=== PATIENT | female | born 1995 | race Two or more races ===

== ENCOUNTER 2024-01-30 08:51 | Outpatient (AMB) | payer OTHER, SELFPAY ==
--- NOTE | 2024-01-30 08:58 | MHC.PC.OV ---
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 Intake Note: new patient to establish care Allergies No Known Allergies Allergy (Verified 01/30/24 09:11) Medication List - Last Reconciled 01/30/24 by Rosa Elena Barraza, [facility] escitalopram oxalate 5 mg PO DAILY Tobacco use date assessed: 01/30/24 Dental Screening Dental Screen Date: 01/30/24 Did you have a dental visit in the last 12 months?: Yes Did you have a dental problem in the last 6 months where you did not have access to dental care?: No Was dental information given to patient?: Patient has dentist HPI HPI Comments History of Present Illness Details Brenda 28 y/o F MDD, current tobacco user, obesity, MDD, ANDREEA Social: 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 No old records available to me today. Has not had a PCP in a while Has been gaining a lot of wt. 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 She is also working out. Needs help to loose wt. Reports labs 1 mo ago at school, negative per reports for thyroid or diabetes. Having irregular periods of late; every 3-4 months it will be late. This month due yesterday but has not gotten it yet. She is not sexually active. Dad 3 years ago and was having irregular periods at that time which lasted for about 2 years. Thinks had some sort of PCOS work up done at school, this was as while ago. Not active w RESEARCH PROFESSOR or Endo. Denies hirsutism, acanthosis nigrans. MDD - on escitalopram for the last 7 months. Feels like sx are controlled for the most part. Discussed relationship w/ food and body image. Does weigh self daily. Was called fat when living in [place] for a decade. Hates body. Denies any anorexia, binging or purging. Denies SI/HI Hx of restricting during Judo competitions but not outside of that. Current tobacco use - just started recently d/t stress. Exam: Awake alert NAD thyroid nonpalpable RRR LS CTAB Mood and affect approriate Plan Flu shot today Check labs today Cont meds and care w/ psych Smoking cessation RTO in 3-4 weeks to fu on results and discuss treatments, sooner PRN This note is constructed using voice recognition software. While every effort has been made to ensure accuracy in multifocal button generator, still errors may have been included Sometimes, these errors may affect the content or meaning of the given sentence . Total time spent caring for the patient today was 46 minutes. This includes time spent before the visit reviewing the chart, time spent during the visit, and time spent after the visit on documentation [facility] Medical History (Updated 01/30/24 @ 09:44 by Rosa Elena Barraza [facility]) Depression Surgical History (Updated 01/30/24 @ 09:03 by Ashley Reyes MA) No pertinent past surgical history Family History (Updated 01/30/24 @ 09:04 by Ashley Reyes MA) Mother Hypertension Father Hypertension Maternal Grandmother Diabetes Social History (Updated 01/30/24 @ 09:05 by Ashley Reyes MA) Household Members: Other Housing: Apartment Are you a primary resident care aide to a significant other at home: No Do you presently have visiting nurse or other home services: No Alcohol intake: current Alcohol intake frequency: a few times a month Patient Tobacco Use Status: Current everyday Tobacco user Tobacco use type: Cigarette Cigarette Packs Per Day: 1 Cigarettes Per Day: 1 Years Smoked: 2 weeks e-Cigarette/Vaping Use: Never Used service: No Current occupational status: student Cognitive needs: No Hearing needs: No Vision needs: No Questionnaire PHQ-9 Over the last 2 weeks, how often have you been bothered by any of the following problems? 1. Little interest or pleasure in doing things: not at all 2. Feeling down, depressed, or hopeless: not at all 3. Trouble falling or staying asleep, or sleeping too much: not at all 4. Feeling tired or having little energy: not at all 5. Poor appetite or overeating: several days 6. Feeling bad about yourself - or that you are a failure or have let yourself or your family down: not at all 7. Trouble concentrating on things, such as reading the newspaper or watching television: not at all 8. Moving or speaking so slowly that other people could have noticed. Or the opposite - being so fidgety or restless that you have been moving around a lot more than usual: not at all 9. Thoughts that you would be better off or of hurting yourself in some way: not at all Total score: 1 Depression Screening Interpretation: Negative Depression Screening Done: Yes 46150 - PHQ-9 Billing: Yes Source: Developed by Drs. Сергей Agee, Amira Acuna, Jonah Mitchell and colleagues, with an educational lee from [employer]. Thrive Questionnaire Date Thrive assessed: 01/30/24 I am a: Patient What is your living situation today?: I have a steady place to live Within the past 12 months, did the food you bought not last and you didn't have the money to get more?: Never true Within the past 12 months, did you worry whether your food would run out before you got money to buy more?: Never true Do you have trouble paying for medicines?: No Do you have trouble getting transportation to medical appointments?: No Do you have trouble paying your heating and electricity bill?: No Do you have trouble taking care of your child, family member or friend?: No Do you have trouble with day-to-day activities such as bathing, preparing meals, shopping, managing finances, etc.?: No Are you currently unemployed and looking for a job?: No Are you interested in more education?: No Please select the resources that you would like help with: None Currently or been in a relationship where the following occur: No concerns reported THRIVE Score: 0 AUDIT C Alcohol Use Questionnaire (AUDIT-C) 1. How often do you have a drink containing alcohol?: Monthly or less 3. How often do you have six or more drinks on one occasion?: Never Total Score: 1 Score Reviewed/Action Taken: Yes ANDREEA-7 AMB Questionnaire ANDREEA-7 Date ANDREEA - 7 assessed: 01/30/24 Feeling nervous, anxious, or on edge: 1 = Several days Not being able to stop or control worryin = Several days Worrying too much about different things: 1 = Several days Trouble relaxin = Several days Being so restless that it is hard to sit still: 0 = Not at all Feeling afraid as if something awful might happen: 0 = Not at all Source: Developed by Drs. Сергей Agee, Amira Acuna, Jonah Mitchell and colleagues, with an educational lee from [employer]. ANDREEA-7 Assessment Billing ANDREEA-7 Assessment Tool: ANDREEA-7 Assessment 98784 Physical exam (Primary Care) Vital Signs: Last Vital Signs Pulse 59 01/30/24 09:05 Resp 14 01/30/24 09:05 BP 118/70 01/30/24 09:05 Pulse Ox 99 01/30/24 09:05 Oxygen Delivery Method Room Air 01/30/24 09:05 BMI result Body Mass Index 39.0 BMI Assessment/Plan discussion: High BMI High, discussed plan: lifestyle, dietary and physical activity Tobacco/Smoking Status: Tobacco use Status Tobacco use date assessed 01/30/24 01/30/24 09:07 Patient Tobacco Use Status Current everyday Tobacco 01/30/24 09:07 Tobacco use type Cigarette 01/30/24 09:07 e-Cigarette/Vaping Use Never Used 01/30/24 09:07 Are you ready to quit: No Tobacco cessation counseling provided: Yes Items discussed: Other Relapse Prevention: discussed the importance of a supportive environment, discussed extending NRT, discussed negative mood or depression after quitting, weight gain after smoking is common and discussed dietary, exercise and/or lifestyle changes Number of minutes spent counselin CPT code: 65694 - 4-10 Minutes PHQ-9: PHQ-9 Score PHQ-9: Total score 1 01/30/24 10:02 Depression Screening Interpretation: Negative Thrive Assessment: Date of Thrive Assessment Date Thrive assessed 01/30/24 01/30/24 09:00 Currently or been in a relationship where the following occur: No concerns reported Office Procedures Flu Questionnaire Does the patient have a severe egg allergy?: No Does the patient have severe life threatening allergies?: No Does the patient have a fever or illness today?: No Has the patient ever had Guillain-[place] Syndrome?: No Has the patient ever had any past reaction to a flu shot?: No Immunizations Fluarix Triv 4122-0445 (PF) 45 mcg (15 mcg x 3)/0.5 mL IM syringe Performing Provider: ALEXEY Norris Performing Location: [facility] Family Medicine Administered by: Nicole Flannery RN on 01/30/24 10:02 Dose Route Admin Location Dispensed Lot Number Expiration Date [facility] Barrel Lapper 0.5 mL IM Right Deltoid 0.5 mL [id number] 10/07/24 [id number] [employer] VIS Given Date VIS Provided VIS Publication Date 01/30/24 Single Vaccine 20 Eligibility Eligibility Date Funding Source Not [facility] Eligible 01/30/24 Private Coding Level of Care Code New Pt Level 4 (32147) Complex EM visit Add On G2211 Diagnoses 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 Oligomenorrhea type: secondary ANDREEA (generalized anxiety disorder) F41.1 Mild episode of recurrent major depressive disorder F33.0 Major depression episode severity: mild BMI 39.0-39.9,adult Z68.39 Obesity, Class II, BMI 35-39.9 E66.812 Current tobacco use Z72.0 Additional Codes ANDREEA-7 Assessment Billing - ANDREEA-7 Assessment Tool: ANDREEA-7 Assessment 99330 ([id number]) Vital Signs *Quality* - CPT code: 97181 - 4-10 Minutes ([id number]) Assessment & Plan Assessment & Plan (1) Oligomenorrhea: Code(s): N91.5 - Oligomenorrhea, unspecified Category: Medical Qualifiers: Oligomenorrhea type: secondary Qualified Code(s): N91.4 - Secondary oligomenorrhea Plan: . (2) ANDREEA (generalized anxiety disorder): Code(s): F41.1 - Generalized anxiety disorder Category: Medical Plan: . (3) MDD (major depressive disorder), recurrent episode: Code(s): F33.9 - Major depressive disorder, recurrent, unspecified Category: Medical Qualifiers: Major depression episode severity: mild Qualified Code(s): F33.0 - Major depressive disorder, recurrent, mild Plan: . (4) BMI 39.0-39.9,adult: Code(s): Z68.39 - Body mass index [BMI] 39.0-39.9, adult Category: Medical Plan: . (5) Obesity, Class II, BMI 35-39.9: Code(s): E66.812 - Obesity, class 2 Category: Medical Plan: . (6) Current tobacco use: Code(s): Z72.0 - Tobacco use Category: Social Hx Plan: Smoking Cessation How to Quit There are a lot of ways to quit smoking and many resources to help you. Family members, friends, and co-workers may be supportive or encouraging, but to be successful the desire and commitment to quit must be your own. Most people who have been able to successfully quit smoking made at least one unsuccessful attempt in the past. Try not to view past attempts to quit as failures, but rather as learning experiences. Stopping smoking or using smokeless tobacco is difficult, but anyone can do it. Know the symptoms to expect when you stop. Common symptoms include: ? An intense craving for nicotine ? Anxiety, tension, restlessness, frustration, or impatience ? Difficulty concentrating ? Drowsiness or trouble sleeping, as well as bad dreams and nightmares ? Drowsiness and trouble sleeping ? Headaches ? Increased appetite and weight gain ? Irritability or depression How severe your symptoms are depends on how long you smoked and how many cigarettes you smoked each day. Feel ready to quit? ? First and foremost, set a quit date and quit completely on that day. Before your quit date, you may begin reducing your cigarette use. But remember, there is no safe level of cigarette smoking. ? List the reasons why you want to quit. Include both short- and long-term benefits. ? Identify the times you are most likely to smoke. For example, do you tend to smoke when feeling stressed or down? When out at night with friends? While drinking coffee or alcohol? When bored? While driving? Right after a meal or sex? During a work break? While watching TV or playing cards? When you are with other smokers? ? Let all of your friends, family, and co-workers know of your plan to stop smoking and your quit date. Just being aware that they know what you're going through can be helpful, especially when you are grumpy. ? Get rid of all your cigarettes just before the quit date, and clean out anything that smells like smoke, such as clothes and furniture. Make a plan about what you will do instead of smoking at those times when you are most likely to smoke. ? Be as specific as possible. For example, drink tea instead of coffee -- tea may not trigger the desire for a cigarette. Or, take a walk when you feel stressed. ? Remove ashtrays and cigarettes from the car. Place pretzels or hard candies there instead. Pretend-smoke with a straw. ? Find activities that focus your hands and mind but are not taxing or fattening. Computer games, solitaire, knitting, sewing, and crossword puzzles may help. ? If you normally smoke after eating, find other ways to end a meal. Play a tape or CD, eat a piece of fruit, get up and make a phone call, or take a walk (a good distraction that also govea calories). Make other changes in your lifestyle. ? Change your daily schedule and habits. Eat at different times or eat several small meals instead of three large ones. Sit in a different chair or even a different room. ? Satisfy your oral habits by eating celery or other low-calorie snack, chewing sugarless gum, or sucking on a cinnamon stick. ? Go to public places and restaurants where smoking is prohibited or restricted. ? Eat regular meals and don't eat too much candy or sweet things. ? Get more exercise. Take walks or ride a bike. Exercise helps relieve the urge to smoke. Set short-term quitting goals and reward yourself when you meet them. ? Every day, put the money you normally spend on cigarettes in a jar. Then buy something pleasurable after a period of time. ? Try not to think about all the days ahead you will need to avoid smoking. Take it one day at a time. ? Even one puff or one cigarette will make your desire for more cigarettes even stronger. However, it is normal to make mistakes. So even if you have one cigarette, you don't need to take the next one. Other tips to help you quit smoking and stick to it: ? Enroll in a smoking cessation program (hospitals, health departments, community centers, and work sites often offer programs). Learn about self-hypnosis or other techniques. ? Ask your health care provider about prescription medications that are safe and appropriate for you. ? Find out about nicotine patches, gum, and sprays. The [place] [employer]'s web site -- www.cancer.org -- is an excellent resource for smokers who are trying to quit, and the [employer] [place] [employer] can help some smokers kick the habit. Above all, don't get discouraged if you aren't able to quit smoking the first time. Nicotine addiction is a hard habit to break. Try something different next time. Develop new strategies, and try again. Many people take several attempts to finally kick the habit. Plan . Orders: Orders DHEA Sulfate Today N91.5 - Oligomenorrhea, unspecified Prolactin Today N91.5 - Oligomenorrhea, unspecified 17 Hydroxyprogesterone Today N91.5 - Oligomenorrhea, unspecified Comprehensive Met. Panel Today N91.5 - Oligomenorrhea, unspecified Hemoglobin A1c Today N91.5 - Oligomenorrhea, unspecified IRON PROFILE Today N91.5 - Oligomenorrhea, unspecified Microalbumin, Random (w Creat) Today N91.5 - Oligomenorrhea, unspecified Vitamin D 1,25 dihydroxy Today N91.5 - Oligomenorrhea, unspecified Influenza 1799-8150 Immunization Today Z23 - Encounter for immunization Testosterone, Free/Total Today N91.5 - Oligomenorrhea, unspecified Complete Blood Count no Diff Today N91.5 - Oligomenorrhea, unspecified Lipid Panel Today N91.5 - Oligomenorrhea, unspecified TSH reflex Free T4 Today N91.5 - Oligomenorrhea, unspecified Vitamin B12 and Folate Today N91.5 - Oligomenorrhea, unspecified Patient Instructions: Walk-In Care (Urgent Care): We Make it Easy Walk-in for urgent medical issues such as: ? Seasonal Allergies ? Insect Bites ? Cough ? Diarrhea ? Acute Asthma Attacks ? Back, Knee or Joint Pain ? Ear Infection ? Fever without a Rash ? Headaches ? Nausea ? [facility] Eye, Rash or Skin Irritation ? Sore Throat ? Sports Physicals ? Vomiting Most insurances are accepted. Patients do not need to be part of the [facility] to seek care at the walk-in clinic. Locations [facility] , [place] [address] ? [phone] [facility] Walk-In Care in [place] provides services to ages 18 and over. Open Monday-Monday: 8 a.m. to 5 p.m. and Monday: 9 a.m. to 3 p.m.* *Hours may vary due to staffing availability. To confirm Walk-In Care hours in [place], please call [phone]. [address] [facility], [place] [address] ? [phone] [facility] Walk-In Care in [place] provides services to ages 12 and over. Open Monday-Monday: 8 a.m. to 5 p.m. Hours may vary due to staffing availability. To confirm Walk-In Care hours in [place], please call [phone]. LABORATORY SERVICES: [facility] Lab ? Primary Location [address] [place] [address] Monday through Monday 6:00 AM ? 5:00 PM Monday 7:00 AM ? 11:00 AM* [phone] The [facility] Lab is centrally located near the front entrance of the [facility] for easy outpatient access. Convenient parking is provided for outpatients. *Hours may vary due to staffing availability. To confirm Laboratory hours for any location, please call [phone]. Offsite Location For your convenience, we offer offsite laboratory draw stations at the following locations: [address] [place] [address] ? [address], [address] Monday through Monday 7:30 AM ? 1:00 PM* [phone] *Hours may vary due to staffing availability. To confirm Laboratory hours for any location, please call [phone]. [place] ? [address] Monday through Monday 6:00 AM ? 3:30 PM* Monday 6:30 AM ? 3 PM* [phone] *Hours may vary due to staffing availability. To confirm Laboratory hours for any location, please call [phone] [place] [address] Monday through Monday 7:30 AM ? 4:00 PM* [phone] *Hours may vary due to staffing availability. To confirm Laboratory hours for any location, please call [phone] [place] [address] Monday through 9:00 AM ? 4:00 PM* *Hours may vary due to staffing availability. To confirm Laboratory hours for any location, please call [phone]. Appointments are not necessary. Walk-ins are welcome. Like all the departments throughout the [facility], our Lab undergoes frequent reviews to ensure the quality and accuracy of test results, and our staff takes special pride in its status as a nationally accredited facility. Patient Portal: ONE PATIENT. ONE RECORD. BETTER CARE. [facility] has a fully integrated, cutting-edge mobile electronic health information system that has revolutionized the way we care for our patients and manage our organization. This system improves communication and coordination enabling us to provide safe, higher-quality care, and an overall positive experience for staff and patients. Our first priority, as always, is to deliver the highest quality care possible. The system is running in the background supporting that priority. This portal is for all [facility] services and practices. If you are experiencing any technical difficulties with enrolling or logging into the Patient Portal please complete the [facility] Patient Portal Technical Support Form. [facility] now offers a new secure on-line interactive tool for patients to review their health information ? ?Patient Portal. This interactive web portal will enable patients and their families to take an active role in their care by providing easy, secure access to their health information via the internet. The Patient Portal provides patients with instant access to their health information, including laboratory results, medications, allergies, demographic information, visit history, and more. In addition to managing their own care, parents and health care proxies with authorized consent will appreciate the ability to access the records of those individuals for whom they provide care. Please note: if you wish to gain access (Proxy) to another patient?s portal, you will be required to come to the Medical Records Department in person at [facility]. Both the patient giving proxy access and the proxy will need to provide photo identification and complete the appropriate authorization. The Patient Portal also allows track their appointments online. The [facility] Patient Portal also saves patients time by allowing them to submit updates to their demographic and contact information prior to their visits. Portal email notifications will also alert patients to any new activity on their portal, such as test results and new appointments. In order to initially enroll in the [facility] Patient Portal, you will need to enter some required information including the following: your [facility] Medical Record number your personal home email address name date of Please note: In order to enroll in the [facility] Patient Portal, we need to have your email address on file in your electronic medical record. ?The email address needs to be specific for one person (yourself) in order for your Portal enrollment to be successful. ?You can update your email address in person with our Registration staff when you are registering for a hospital visit. ?Otherwise, you will need to come to the Health Information Management (Medical Records) Department at [facility]. ?We are open from Monday ? Monday from 7:30 a.m. ? 4:30 p.m. ?You will be required to present a photo id. Once you have successfully enrolled in the Patient Portal, you will receive a one-time user id and password for the Portal, sent to your email address. ?This will allow you to log into the Patient Portal within 99 hrs and reset your own logon id and password, and define personal security questions. ?Once your permanent login and password have been set, you can log into the [facility] Patient Portal at any time via the blue button above or from the Portal Logon button on any page of the [facility] website. [facility] and [facility] encourage all of our patients to enroll in Patient Portal as it presents a valuable opportunity for patients and their families to actively participate in their care and stay healthy Welcome to [facility]. ?We look forward to working with you.
[2024-01-30 09:05] VITALS: BP 118/70; PULSE 59; RESP 14; O2SAT 99; BMI 39.0
== END 2024-01-30 09:35 | disposition home or self-care (01) ==
PROVIDERS: PCP Nurse Practitioner Family; Visit Provider Nurse Practitioner Family
DX: N91.4 Secondary oligomenorrhea (principal); F41.1 Generalized anxiety disorder; F33.0 Major depressive disorder, recurrent, mild; Z68.39 Body mass index [BMI] 39.0-39.9, adult; E66.812 Obesity, class 2; Z72.0 Tobacco use; Z23 Encounter for immunization

== ENCOUNTER → 2024-01-30 08:51 | Outpatient (BNVA) | payer OTHER, SELFPAY | PROVIDERS: Visit Provider Nurse Practitioner Family ==

== ENCOUNTER 2024-01-30 09:43 | Outpatient (REF) | payer OTHER, SELFPAY ==
[2024-01-30 11:36] LABS: Hematocrit 36.8 % (37.0-47.0); Hemoglobin 11.8 g/dl (12.0-16.0); Mean Corpuscular HGB Conc 32.1 g/dl (31.0-35.0); Mean Corpuscular Hemoglobin 24.3 pg (27.0-33.0); Mean Corpuscular Volume 75.7 fL (80.0-98.0); Mean Platelet Volume 10.3 fL (9.4-12.3); Platelet Count 274 X10*3/uL (160-400); Red Blood Count 4.86 X10*6/uL (4.20-5.50); Red Cell Distribution Width 13.3 % (11.0-16.0); White Blood Count 5.4 X10*3/uL (4.8-10.8)
[2024-01-30 12:02] LABS: Alanine Aminotransferase 48 U/L (0-31); Albumin Level 4.4 g/dL (3.5-5.0); Alkaline Phosphatase 54 U/L (39-117); Anion Gap 10 (12-20); Aspartate Amino Transferase 33 U/L (5-31); Bilirubin Total 0.2 mg/dL (0.0-1.0); Blood Urea Nitrogen 13 mg/dL (9-16); Calcium 9.5 mg/dL (8.4-10.2); Carbon Dioxide 24 mmol/L (22-29); Chloride 110 mmol/L (96-108); Cholesterol 163 mg/dL (<200); Estimated Glomerular Filt Rate > 60; Glucose Random 122 mg/dL (60-115); HDL Cholesterol 43 mg/dL (>40); Iron 34 mcg/dL (30-160); LDL Cholesterol Calculated 105 mg/dL (<100); Percent Iron Saturation 9 % (15-50); Potassium 4.3 mmol/L (3.3-5.1); Sodium 140 mmol/L (135-145); Total Iron Binding Capacity 385 mcg/dL (228-428); Total Protein 7.5 g/dL (6.5-8.0); Triglycerides 79 mg/dL (<150); Unsaturated Iron Binding 351 ug/dL
[2024-01-30 12:03] LABS: Estimated Average Glucose 140 mg/dL; Hemoglobin A1C 143.5784 umol/L; Hemoglobin A1c % 6.5 % (<6.0); Total Hemoglobin (HGBA1C) 3045.8968 umol/L
[2024-01-30 12:08] LABS: TSH reflex Free T4 1.56 uIU/mL (0.32-4.0)
[2024-01-30 12:19] LABS: Folate 11.1 ng/mL (> or = 4.0); Vitamin B12 335 pg/mL (200-900)
[2024-01-30 15:07] LABS: Creatinine Urine 195.35 mg/dL; Microalbum/Creatinine Ratio Ur 9.2 ug/mg cr (<30)
[2024-02-01 10:14] LABS: DHEA Sulfate 233 mcg/dL (14-349); Prolactin 5.2 ng/mL
[2024-02-06 00:09] LABS: VITAMIN D (1,25 OH) D3 47 pg/mL; Vit D (1,25-Dihydroxy) Total 47 pg/mL (18-72); Vitamin D (1,25 OH) D2 <8 pg/mL
[2024-02-09 21:59] LABS: Testosterone, Free 3.7 pg/mL (0.1-6.4); Testosterone, Total 21 ng/dL (2-45)
== END 2024-01-30 09:44 | disposition home or self-care (01) ==
LOC: HO.WFDLDS 09:43
PROVIDERS: Visit Provider Nurse Practitioner Family
DX: Z23 Encounter for immunization (principal); F41.1 Generalized anxiety disorder; F33.0 Major depressive disorder, recurrent, mild; E66.812 Obesity, class 2; Z68.39 Body mass index [BMI] 39.0-39.9, adult; N91.5 Oligomenorrhea, unspecified; Z71.3 Dietary counseling and surveillance; Z72.0 Tobacco use
CPT/HCPCS: 36415; 80053; 80061; 82043; 82570; 82607; 82627; 82652; 82746; 83036; 83498; 83540; 84146; 84402; 84403; 84443; 85027; 90471; 90656; 96127; 99202

== ENCOUNTER 2024-02-16 08:28 | Outpatient (AMB) | payer OTHER, SELFPAY ==
--- NOTE | 2024-02-16 08:32 | MHC.PC.OV ---
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 Required: No Allergies No Known Allergies Allergy (Verified 02/16/24 08:48) Medication List - Last Reconciled 02/16/24 by LAZARA Norris- escitalopram oxalate 5 mg PO DAILY Tobacco use date assessed: 01/30/24 Dental Screening Dental Screen Date: 01/30/24 HPI HPI Comments History of Present Illness Details Brenda 28 y/o F MDD, current tobacco user, obesity, MDD, ANDREEA, Iron def anemia, DM2, Vegetarian Diet, Fatty liver Social: 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 Labs from 01/30/2024 show anemia hemoglobin 11.8, hematocrit 36.8, MCV 75.7, MCH 24.3, low% iron saturation at 9 otherwise normal iron profile, normal electrolytes, normal renal function, random glucose 122, hemoglobin A1c 6.5%, elevated LFTs AST 33, ALT 48, normal cholesterol profile, normal B12, folate and TSH, normal urine microalbumin creatinine ratio normal prolactin, DHEAs... all normal In regards to the anemia she denies any overt blood loss. She is a vegetarian. She does not take any supplements. Discuss the PCOS diagnosis. Made aware that the testing should be done around certain times of her period. As she has irregular menses this would be difficult. Discussed checking an ultrasound. Patient states that she has no plans to conceive children. She is open to starting a control. She is currently smoking tobacco so this is 1 contraindication to OCPs. This is a new habit. Hope to support and encourage cessation Plan Start metformin ER 500 mg p.o. q.a.m.. Advised to take with a meal. If unable to eat, advised to skip. He was being given to help diabetes, fatty liver as well as to aid in weight loss. We will titrate to effect. Goal a1c < 6 Refer to ophthalmology for diabetic eye exam, referral to adult educator for nutrition. Start a multivitamin with iron. Advised to take with food. Educated on the GI side effects that can occur, advised to take with food. Okay to reduce down to taking 3 times a week if unable to tolerate. Will review adding OCP at the next visit, once again, tobacco cessation is required. Can also consider spironolactone. Return to office in 2 months to follow up on diabetes, iron-deficiency anemia, fatty liver, sooner as needed This note is constructed using voice recognition software. While every effort has been made to ensure accuracy in vfx artist, still errors may have been included Sometimes, these errors may affect the content or meaning of the given sentence . Total time spent caring for the patient today was 40 minutes. This includes time spent before the visit reviewing the chart, time spent during the visit, and time spent after the visit on documentation [facility] Medical History (Updated 02/16/24 @ 15:29 by Rosa Elena Barraza, [facility]) Depression Surgical History (Updated 01/30/24 @ 09:03 by Ashley Reyes MA) No pertinent past surgical history Family History (Updated 01/30/24 @ 09:04 by Ashley Reyes MA) Mother Hypertension Father Hypertension Maternal Grandmother Diabetes Social History (Updated 01/30/24 @ 09:05 by Ashley Reyes MA) Household Members: Other Both parents involved: No Caregiver staying overnight: No Housing: Apartment Are you a primary critical care nurse practitioner to a significant other at home: No Do you presently have visiting nurse or other home services: No 75 years or older and lives alone: No Alcohol intake: current Alcohol intake frequency: a few times a month Patient Tobacco Use Status: Current everyday Tobacco user Tobacco use type: Cigarette Cigarette Packs Per Day: 1 Cigarettes Per Day: 1 Years Smoked: 2 weeks e-Cigarette/Vaping Use: Never Used service: No Current occupational status: student Cognitive needs: No Hearing needs: No Vision needs: No Questionnaire PHQ-9 Over the last 2 weeks, how often have you been bothered by any of the following problems? 42292 - PHQ-9 Billing: Patient declined-do not bill Source: Developed by Drs. Сергей Agee, Amira Acuna, Jonah Mitchell and colleagues, with an educational lee from [employer]. Thrive Questionnaire Date Thrive assessed: 02/16/24 I am a: Patient What is your living situation today?: I have a steady place to live Within the past 12 months, did the food you bought not last and you didn't have the money to get more?: Never true Within the past 12 months, did you worry whether your food would run out before you got money to buy more?: Never true Do you have trouble paying for medicines?: No Do you have trouble getting transportation to medical appointments?: No Do you have trouble paying your heating and electricity bill?: No Do you have trouble taking care of your child, family member or friend?: No Do you have trouble with day-to-day activities such as bathing, preparing meals, shopping, managing finances, etc.?: No Are you currently unemployed and looking for a job?: No Are you interested in more education?: No Please select the resources that you would like help with: None Currently or been in a relationship where the following occur: No concerns reported THRIVE Score: 0 ANDREEA-7 AMB Questionnaire ANDREEA-7 Date ANDREEA - 7 assessed: 01/30/24 Becoming easily annoyed or irritable: 1 = Several days Source: Developed by Drs. Сергей Agee, Jonah Chopra and colleagues, with an educational lee from [employer]. Physical exam (Primary Care) Vital Signs: Last Vital Signs Pulse 76 02/16/24 08:36 Resp 13 02/16/24 08:36 BP 118/68 02/16/24 08:36 Pulse Ox 98 02/16/24 08:36 Oxygen Delivery Method Room Air 02/16/24 08:36 BMI result Body Mass Index 38.9 Tobacco/Smoking Status: Tobacco use Status Tobacco use date assessed 01/30/24 02/16/24 08:35 Patient Tobacco Use Status Current everyday Tobacco 02/16/24 08:35 Tobacco use type Cigarette 02/16/24 08:35 e-Cigarette/Vaping Use Never Used 02/16/24 08:35 Are you ready to quit: No Tobacco cessation counseling provided: Yes Items discussed: Nicotine replacement, QuitWorks and Other Relapse Prevention: discussed the importance of a supportive environment, discussed extending NRT, discussed negative mood or depression after quitting, weight gain after smoking is common and discussed dietary, exercise and/or lifestyle changes CPT code: 84649 - 4-10 Minutes Thrive Assessment: Date of Thrive Assessment Date Thrive assessed 02/16/24 02/16/24 08:35 Currently or been in a relationship where the following occur: No concerns reported Office Procedures Office Procedure Misc Details: G0449 15 MINUTE OBESITY EDUCATION Office Procedure Billing Code: AMB Procedure Billing Code (G0449 15 MINUTE OBESITY EDUCATION) Coding Level of Care Code Est Pt Level 5 (98433) Complex EM visit Add On G2211 Diagnoses Type 2 diabetes mellitus without complication, without long-term current use of insulin E11.9 Diabetes mellitus complication status: without complication Diabetes mellitus watcher automat long goods insulin use: without watcher automat long goods use Fatty liver disease, nonalcoholic K76.0 Iron deficiency anemia secondary to inadequate dietary iron intake D50.8 Iron deficiency anemia type: inadequate dietary iron intake BMI 39.0-39.9,adult Z68.39 Obesity, Class II, BMI 35-39.9 E66.812 Current tobacco use Z72.0 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 Oligomenorrhea type: secondary Vegetarian diet Z78.9 CPT Codes Office Procedure - Office Procedure Billing Code: AMB Procedure Billing Code ([id number]) Additional Codes Vital Signs *Quality* - CPT code: 24696 - 4-10 Minutes ([id number]) Assessment & Plan Assessment & Plan (1) DM2 (diabetes mellitus, type 2): Code(s): E11.9 - Type 2 diabetes mellitus without complications Category: Medical Qualifiers: Diabetes mellitus complication status: without complication Diabetes mellitus fci insulin use: without fci use Qualified Code(s): E11.9 - Type 2 diabetes mellitus without complications Plan: . (2) Fatty liver disease, nonalcoholic: Code(s): K76.0 - Fatty (change of) liver, not elsewhere classified Category: Medical Plan: . (3) Iron deficiency anemia: Code(s): D50.9 - Iron deficiency anemia, unspecified Category: Medical Qualifiers: Iron deficiency anemia type: inadequate dietary iron intake Qualified Code(s): D50.8 - Other iron deficiency anemias (4) BMI 39.0-39.9,adult: Code(s): Z68.39 - Body mass index [BMI] 39.0-39.9, adult Category: Medical Plan: . (5) Obesity, Class II, BMI 35-39.9: Code(s): E66.812 - Obesity, class 2 Category: Medical Plan: . (6) Current tobacco use: Code(s): Z72.0 - Tobacco use Category: Social Hx Plan: Smoking Cessation How to Quit There are a lot of ways to quit smoking and many resources to help you. Family members, friends, and co-workers may be supportive or encouraging, but to be successful the desire and commitment to quit must be your own. Most people who have been able to successfully quit smoking made at least one unsuccessful attempt in the past. Try not to view past attempts to quit as failures, but rather as learning experiences. Stopping smoking or using smokeless tobacco is difficult, but anyone can do it. Know the symptoms to expect when you stop. Common symptoms include: ? An intense craving for nicotine ? Anxiety, tension, restlessness, frustration, or impatience ? Difficulty concentrating ? Drowsiness or trouble sleeping, as well as bad dreams and nightmares ? Drowsiness and trouble sleeping ? Headaches ? Increased appetite and weight gain ? Irritability or depression How severe your symptoms are depends on how long you smoked and how many cigarettes you smoked each day. Feel ready to quit? ? First and foremost, set a quit date and quit completely on that day. Before your quit date, you may begin reducing your cigarette use. But remember, there is no safe level of cigarette smoking. ? List the reasons why you want to quit. Include both short- and long-term benefits. ? Identify the times you are most likely to smoke. For example, do you tend to smoke when feeling stressed or down? When out at night with friends? While drinking coffee or alcohol? When bored? While driving? Right after a meal or sex? During a work break? While watching TV or playing cards? When you are with other smokers? ? Let all of your friends, family, and co-workers know of your plan to stop smoking and your quit date. Just being aware that they know what you're going through can be helpful, especially when you are grumpy. ? Get rid of all your cigarettes just before the quit date, and clean out anything that smells like smoke, such as clothes and furniture. Make a plan about what you will do instead of smoking at those times when you are most likely to smoke. ? Be as specific as possible. For example, drink tea instead of coffee -- tea may not trigger the desire for a cigarette. Or, take a walk when you feel stressed. ? Remove ashtrays and cigarettes from the car. Place pretzels or hard candies there instead. Pretend-smoke with a straw. ? Find activities that focus your hands and mind but are not taxing or fattening. Computer games, solitaire, knitting, sewing, and crossword puzzles may help. ? If you normally smoke after eating, find other ways to end a meal. Play a tape or CD, eat a piece of fruit, get up and make a phone call, or take a walk (a good distraction that also govea calories). Make other changes in your lifestyle. ? Change your daily schedule and habits. Eat at different times or eat several small meals instead of three large ones. Sit in a different chair or even a different room. ? Satisfy your oral habits by eating celery or other low-calorie snack, chewing sugarless gum, or sucking on a cinnamon stick. ? Go to public places and restaurants where smoking is prohibited or restricted. ? Eat regular meals and don't eat too much candy or sweet things. ? Get more exercise. Take walks or ride a bike. Exercise helps relieve the urge to smoke. Set short-term quitting goals and reward yourself when you meet them. ? Every day, put the money you normally spend on cigarettes in a jar. Then buy something pleasurable after a period of time. ? Try not to think about all the days ahead you will need to avoid smoking. Take it one day at a time. ? Even one puff or one cigarette will make your desire for more cigarettes even stronger. However, it is normal to make mistakes. So even if you have one cigarette, you don't need to take the next one. Other tips to help you quit smoking and stick to it: ? Enroll in a smoking cessation program (hospitals, health departments, community centers, and work sites often offer programs). Learn about self-hypnosis or other techniques. ? Ask your health care provider about prescription medications that are safe and appropriate for you. ? Find out about nicotine patches, gum, and sprays. The [employer]'s web site -- www.cancer.org -- is an excellent resource for smokers who are trying to quit, and the [employer] [place] [employer] can help some smokers kick the habit. Above all, don't get discouraged if you aren't able to quit smoking the first time. Nicotine addiction is a hard habit to break. Try something different next time. Develop new strategies, and try again. Many people take several attempts to finally kick the habit. (7) Oligomenorrhea: Code(s): N91.5 - Oligomenorrhea, unspecified Category: Medical Qualifiers: Oligomenorrhea type: secondary Qualified Code(s): N91.4 - Secondary oligomenorrhea Plan: . (8) Vegetarian diet: Code(s): Z78.9 - Other specified health status Category: Social Hx Plan: . Plan . Orders: Referrals Ophthalmology Referral E11.9 - Type 2 diabetes mellitus without complications Benzene Worker Nutrition Referral E11.9 - Type 2 diabetes mellitus without complications Medications: New multivitamin with iron 1 tab PO DAILY 90 tabs 2RF metformin ER 500 mg PO QPM 90 tabs 0RF
[2024-02-16 08:36] VITALS: BP 118/68; PULSE 76; RESP 13; O2SAT 98; BMI 38.9
== END 2024-02-16 09:10 | disposition home or self-care (01) ==
LOC: HO.HMCFM 08:29
PROVIDERS: PCP Nurse Practitioner Family; Visit Provider Nurse Practitioner Family
DX: E11.9 Type 2 diabetes mellitus without complications (principal); K76.0 Fatty (change of) liver, not elsewhere classified; Z68.39 Body mass index [BMI] 39.0-39.9, adult; E66.812 Obesity, class 2; D50.8 Other iron deficiency anemias; Z72.0 Tobacco use; N91.4 Secondary oligomenorrhea; Z78.9 Other specified health status

== ENCOUNTER → 2024-02-16 08:28 | Outpatient (BNVA) | payer OTHER, SELFPAY | PROVIDERS: Visit Provider Nurse Practitioner Family | DX: E11.9 Type 2 diabetes mellitus without complications (principal); K76.0 Fatty (change of) liver, not elsewhere classified; D50.8 Other iron deficiency anemias; E66.812 Obesity, class 2; Z68.39 Body mass index [BMI] 39.0-39.9, adult; N91.4 Secondary oligomenorrhea; Z78.9 Other specified health status; Z72.0 Tobacco use; Z71.3 Dietary counseling and surveillance | CPT/HCPCS: 99212 ==

== ENCOUNTER → 2024-05-17 12:14 | Outpatient (BNVA) | payer OTHER, SELFPAY | PROVIDERS: Visit Provider Nurse Practitioner Family | DX: Z23 Encounter for immunization (principal); E11.9 Type 2 diabetes mellitus without complications; E66.812 Obesity, class 2; Z68.39 Body mass index [BMI] 39.0-39.9, adult; K76.0 Fatty (change of) liver, not elsewhere classified; F41.1 Generalized anxiety disorder; F33.0 Major depressive disorder, recurrent, mild; Z71.3 Dietary counseling and surveillance | CPT/HCPCS: 83036; 90471; 90715; 96127; 99212 ==

== ENCOUNTER 2024-05-17 13:59 | Outpatient (REF) | payer OTHER, SELFPAY ==
[2024-05-17 18:04] LABS: Hematocrit 36.9 % (37.0-47.0); Hemoglobin 11.9 g/dl (12.0-16.0); Mean Corpuscular HGB Conc 32.2 g/dl (31.0-35.0); Mean Corpuscular Hemoglobin 24.9 pg (27.0-33.0); Mean Corpuscular Volume 77.4 fL (80.0-98.0); Mean Platelet Volume 10.4 fL (9.4-12.3); Platelet Count 322 X10*3/uL (160-400); Red Blood Count 4.77 X10*6/uL (4.20-5.50); Red Cell Distribution Width 13.5 % (11.0-16.0); White Blood Count 7.2 X10*3/uL (4.8-10.8)
[2024-05-17 18:15] LABS: Alanine Aminotransferase 44 U/L (0-31); Albumin Level 4.4 g/dL (3.5-5.0); Alkaline Phosphatase 59 U/L (39-117); Anion Gap 16 (12-20); Aspartate Amino Transferase 44 U/L (5-31); Bilirubin Total 0.4 mg/dL (0.0-1.0); Blood Urea Nitrogen 9 mg/dL (9-16); Calcium 9.7 mg/dL (8.4-10.2); Carbon Dioxide 24 mmol/L (22-29); Chloride 104 mmol/L (96-108); Estimated Glomerular Filt Rate > 60; Glucose Random 87 mg/dL (60-115); Iron 34 mcg/dL (30-160); Percent Iron Saturation 9 % (15-50); Potassium 3.7 mmol/L (3.3-5.1); Sodium 140 mmol/L (135-145); Total Iron Binding Capacity 381 mcg/dL (228-428); Unsaturated Iron Binding 347 ug/dL
[2024-05-17 18:44] LABS: Folate 9.2 ng/mL (> or = 4.0); Vitamin B12 386 pg/mL (200-900)
== END 2024-05-17 14:00 | disposition home or self-care (01) ==
LOC: HO.WFDLDS 13:59
PROVIDERS: Visit Provider Nurse Practitioner Family
DX: D50.8 Other iron deficiency anemias (principal)
CPT/HCPCS: 36415; 80053; 82607; 82746; 83540; 85027